=== PATIENT | female | born 1970 | race Asian ===

== ENCOUNTER 2017-06-12 20:53 | Emergency (ER) | payer BC ==
[~2017-06-12] VITALS: Ht 160 cm; Wt 69.0 kg
[2017-06-12 20:58] VITALS: BP 139/83
== END 2017-06-13 01:05 | disposition left against medical advice (07) ==
LOC: ER 20:53
DX: R10.9 Unspecified abdominal pain (principal); Z53.21 Procedure and treatment not carried out due to patient leaving prior to being seen by health care provider